=== PATIENT | male | born 1965 | race Caucasian/White ===

== ENCOUNTER 2022-05-03 00:28 | Inpatient (IN) | payer OTHER, SELFPAY ==
[2022-05-03] VITALS (38 sets, daily range): BP systolic 101–182; BP diastolic 56–110; PULSE 80–120; RESP 16–36; TEMP 36.4–37.3; O2SAT 86–98; BMI 31.5; BMI 27.3; BMI 30.3; BMI 30.4
--- NOTE | 2022-05-03 00:40 | ECG_ITS ---
APPROVED REPORT Exam: Resting ECG HR:100 bpm ECG Measurements Heart Rate 100 AXES IN 182 P 94 QRSd 115 QRS 103 QT 405 T 17 QTc 462 Conclusion SINUS TACHYCARDIA WITH OCCASIONAL VENTRICULAR PREMATURE COMPLEXES POSSIBLE LEFT ATRIAL ENLARGEMENT [-0.1mV P-WAVE IN V1/V2] RIGHT AXIS DEVIATION [QRS AXIS > 100] POSSIBLE ANTERIOR MYOCARDIAL INFARCTION , OF INDETERMINATE AGE [30 ms Q WAVE IN V3/V4, OR R < 0.2 mV IN V4] ABNORMAL ECG UNCONFIRMED REPORT Electronically signed by : Valeroi Young MD 05/03/2022 21:27:30
[2022-05-03 01:01] LABS: Coronavirus 19, PCR Not Detected (NotDetected); Influenza A, PCR Not Detected (NotDetected); Influenza B, PCR Not Detected (NotDetected)
[2022-05-03 01:03] LABS: Basophils # 0.1 K/mm3 (0-0.2); Basophils % 1.6 % (0.1-2.0); Eosinophils % 0.4 % (0.1-12.0); Hematocrit 49.6 % (42.0-52.0); Hemoglobin 17.4 g/dL (14.1-18.0); Lymphocytes # 0.9 K/mm3 (0.7-4.5); Lymphocytes % 9.9 % (10-50); Mean Corpuscular HGB Conc 35.1 g/dL (31.8-35.4); Mean Corpuscular Hemoglobin 30.7 pg (27.0-31.2); Mean Corpuscular Volume 87.6 fl (80-94); Mean Platelet Volume 8.3 fl (7.4-10.4); Monocytes # 0.3 K/mm3 (0.1-1.0); Monocytes % 2.9 % (1.7-9.3); Neutrophils # 7.5 K/mm3 (1.8-7.8); Neutrophils % 85.2 % (37.0-80.0); Platelet Count 277 K/mm3 (142-424); Red Blood Count 5.67 M/mm3 (4.60-6.20); Red Cell Distribution Width 14.7 % (11.5-17.5); White Blood Count 8.8 K/mm3 (4.8-10.8)
--- NOTE | 2022-05-03 01:05 | CT_ITS ---
FINAL REPORT TECHNIQUE: Axial CT images were performed through the head. Coronal reformatted images were submitted. This study was performed with techniques to keep radiation doses as low as reasonably achievable (ALARA). Individualized dose reduction techniques using automated exposure control or adjustment of mA and/or kV according to the patient's size were employed. CLINICAL HISTORY: fall FINDINGS: The head is asymmetrically positioned in the gantry. The ventricles are normal in size. There is no evidence of hemorrhage. There is no mass or edema identified. There is no abnormal extra-axial fluid seen. There is mild mucoperiosteal thickening in the right maxillary sinus. The mastoid air cells are hypoplastic. IMPRESSION: No acute intracranial process. Reviewed, Interpreted and Dictated by Dexter Alonzo MD Transcribed by Yessi Ramires Authenticated and [facility]
--- NOTE | 2022-05-03 01:08 | XR_ITS ---
FINAL REPORT CLINICAL HISTORY: soa FINDINGS: SINGLE-VIEW CHEST The heart size is normal. The mediastinum is normal. The lungs are underinflated with bibasilar atelectasis. There is no pneumothorax. IMPRESSION: Bibasilar atelectasis. Reviewed, Interpreted and Dictated by Dexter Alonzo MD Transcribed by Yessi Ramires Authenticated and [facility]
[2022-05-03 01:12] LABS: Alanine Aminotransferase 94 U/L (12-78); Albumin Level 4.7 g/dl (3.5-5.0); Albumin/Globulin Ratio 1.5 (1.1-1.8); Alkaline Phosphatase 135 U/L (38-126); Anion Gap 29.3 mEq/L (5-15); Aspartate Amino Transferase 197 U/L (17-59); Bilirubin,Total 0.7 mg/dl (0.2-1.3); Blood Urea Nitrogen 2 mg/dl (9-20); Calcium 7.4 mg/dl (8.4-10.2); Carbon Dioxide 25 mmol/L (22.0-30.0); Creatinine Clearance Estimated 69 mL/min (50-200); Estimated Glomerular Filt Rate 52 ml/min (>60); GFR (African American) 63 ML/MIN (>60); Globulin 3.2 g/dL (1.3-3.2); Glucose 189 mg/dl (74-100); Sodium 116 mmol/L (136-145); Total Protein,Serum 7.9 g/dl (6.3-8.2)
--- NOTE | 2022-05-03 01:12 | PC.NURSE ---
pt out of room for XRay @ this time
[2022-05-03 01:17] LABS: C-Reactive Protein 3.4 mg/L (0-4)
[2022-05-03 01:23] LABS: MANUAL DIFFERENTIAL MANUAL DIFFERENTIAL (MANUAL DIFF)
--- NOTE | 2022-05-03 01:23 | PC.NURSE ---
patient back in room @ this time.
[2022-05-03 01:24] LABS: NT Pro Brain Natriuretic Pep. 58.4 pg/mL (0-125)
[2022-05-03 01:28] LABS: Procalcitonin 0.147 ng/mL (0.0-2.0)
[2022-05-03 01:33] LABS: ABG Base Excess -3.4 mmol/L (-2.4-2.3); ABG HCO3 22.4 mmhg (22.0-26.0); ABG Oxygen Saturation 91 % (90-100); ABG PH 7.34 mmol/L (7.35-7.45); ABG PO2 66.7 mmhg (80-100); ABG TCO2 23.7 mmhg (23-27)
[2022-05-03 01:34] LABS: Allen's Test Acceptable; Oxygen 2LPM %; Source Right Radial
[2022-05-03 01:40] LABS: Troponin I 0.01 ng/ml (0.00-0.034)
[2022-05-03 01:41] LABS: Lactic Acid 10.5 mmol/L (0.7-2.1)
[2022-05-03 01:42] LABS: Chloride 64 mmol/L (98-107); Potassium 2.3 mmoL/L (3.5-5.1)
--- NOTE | 2022-05-03 01:42 | PC.NURSE ---
Nahomy from lab called in critical labs. Potassium 2.3, Chloride 64 and Lactic of 10.5. notified.
[2022-05-03 01:46] LABS: Creatine Kinase 2508 U/L (55-170)
--- NOTE | 2022-05-03 01:46 | PC.NURSE ---
Patients friend states that she spoke with the patients ex and she told her that he had a history of liver failure.
[2022-05-03 02:15] LABS: Acetone, Serum (Rapid) None Detected (None Detect)
[2022-05-03 02:24] LABS: Erythrocyte Sedimentation Rate 6 mm/hr (0-20)
[2022-05-03 02:28] LABS: Ethyl Alcohol 118 mg/dl (0-10)
--- NOTE | 2022-05-03 02:30 | HMH.EDSOB ---
Discharge Plan Disposition Patient Disposition: Admitted As Inpatient Chief Complaint: Shortness of Breath/Dyspnea Clinical Impressions Clinical Impression: Hypomagnesemia, High anion gap metabolic acidosis, Rhabdomyolysis, Hypokalemia, Hyponatremia, Fall Discharge ED Provider: Gary (ED)Reilly/DOMINICK ORNELAS General Chief Complaint: Shortness of Breath/Dyspnea Stated Complaint: SOB with weakness Time Seen by Provider: 05/03/22 02:00 Mode of Arrival: Wheelchair Source of Information: Patient and Medical Record Limitations: No Limitations Description of Symptoms (Recalled from ER Triage Doc. by RN): Pt arrives to er via private vehicle with c/o generalized weakness. Pt believes that it started on Sunday night. Pt states that he has also had some congestion and shortness of air since sunday with increased confusion. Pt friend states she was worried about how weak he seemed so she brought him in for evaluation. Pt also states that he fell Sunday and hit his face, which he believes was from weakness. History of Present Illness pt with reported weakness and had fall and has been using etoh and has confusion Onset (ago): day(s) Severity: severe Consistency/Duration: constant Associated symptoms: denies other symptoms Related Data Home oxygen amount: none Home Medications Medication Instructions Recorded Confirmed amlodipine 10 mg tablet 10 mg PO DAILY htn 05/03/22 05/03/22 furosemide 40 mg tablet 40 mg PO DAILY Edema 05/03/22 05/03/22 Allergies Allergy/AdvReac Type Severity Reaction Status Date / Time No Known Allergies Allergy Verified 05/03/22 00:51 [facility] Disclaimer: The information contained in this section may have been updated after the patient was seen, as this information can be updated by other users. Medical History (Updated 05/03/22 @ 08:32 by Reilly Vega (ED)MD) Alcoholism Ascites due to alcoholic cirrhosis Liver cirrhosis Surgical History (Updated 05/03/22 @ 05:38 by Noam Hernandez DNP) H/O hernia repair History of hernia repair Social History (Updated 05/03/22 @ 06:50 by Noam Hernandez DNP) Smoking Status: Never smoker alcohol intake: current current occupational status: other Travel in the last 8 weeks: Inside the [place] ROS Obtained: Yes All systems reviewed & no additional complaints except as documented Physical Exam General General appearance: anxious Head Head exam: normocephalic Eye Eye exam: Present PERRL, EOMI and other (has rt eye infraecchymosis); Absent nystagmus ENT ENT exam: Present mucous membranes dry Neck Neck exam: Present full ROM and trachea midline; Absent tenderness Respiratory Respiratory exam: Present other (dec bs bilat ); Absent respiratory distress Cardiovascular Cardiovascular exam: Present tachycardia; Absent systolic murmur Abdominal Exam Abdominal exam: Present soft; Absent tenderness Extremities Exam Extremities exam: Present full ROM Back Exam Back exam: Present normal inspection Neurological Exam Neurological exam: Present alert, oriented X3, CN II-XII intact and other (gcs=14); Absent motor sensory deficit Psychiatric Psychiatric exam: Present anxious Skin Skin exam: Absent rash Medical Decision Making Medical Records Medical records reviewed: Yes I reviewed the patient's medical records. Adan Inquiry Pt receiving controlled substance: No Vital Signs: 05/03/22 00:58 05/03/22 00:57 05/03/22 01:01 Temperature 97.9 F Temperature Source Oral Pulse Rate 103 H 99 H Pulse Rate [Apical] 99 H Respiratory Rate 26 H 30 H 28 H Blood Pressure 115/71 105/56 L Blood Pressure [Right Arm] 130/70 Blood Pressure Mean Blood Pressure Mean [Right Arm] 90 Blood Pressure Source [Right Arm] Automatic Cuff Blood Pressure Position [Right Arm] Sitting 02 Sat by Pulse Oximetry 87 L 88 L 90 L Oxygen Delivery Method Room Air 05/03/22 01:30 05/03/22 02:31 05/03/22 03:01 Temperature Temperatu
[2022-05-03 02:53] LABS: Ammonia 23 umol/L (9-30)
--- NOTE | 2022-05-03 02:54 | CT_ITS ---
FINAL REPORT TECHNIQUE: Postcontrast axial images through the abdomen and pelvis were performed. This study was performed with techniques to keep radiation doses as low as reasonably achievable, (ALARA). Individualized dose reduction techniques using automated exposure control or adjustment of mA and/or kV according to the patient's size were employed. CLINICAL HISTORY: hx of acites FINDINGS: Abdomen: There is patchy bibasilar consolidation. There is mild fatty infiltration of the liver. The gallbladder is folded upon itself. The spleen is unremarkable. The adrenals are normal. The pancreas is unremarkable. The kidneys enhance appropriately. The aorta is normal in caliber. No free fluid or adenopathy is identified. No findings for mechanical bowel obstruction are identified. Pelvis: The appendix is unremarkable. There is a Gaxiola balloon in the decompressed urinary bladder. No free fluid, free air, abscess or adenopathy is identified. IMPRESSION: Patchy bibasilar consolidation. Fatty liver. Reviewed, Interpreted and Dictated by Dexter Alonzo MD Transcribed by Yessi Ramires Authenticated and [facility]
[2022-05-03 02:55] LABS: Microscopic, Urine URINE MICROSCOPIC (MICROSCOPIC)
--- NOTE | 2022-05-03 03:04 | PC.NURSE ---
pt gone to CT @ this time.
[2022-05-03 03:24] LABS: Lymphocytes % 12 % (10-50); Neutrophils % 88 % (42-76); Platelet Estimate Normal; RBC Morphology Normal; Total Cells Counted 100
[2022-05-03 03:27] LABS: Appearance,Urine CLEAR (Clear); Bilirubin,Urine Negative (Negative); Blood, Urine 2+ (Negative); Color,Urine YELLOW (Yellow); Glucose,Urine (UA) Negative (Negative); Ketones,Urine Negative (Negative); Leukocyte Esterase,Urine Negative (Negative); Nitrate,Urine Negative (Negative); PH,Urine 5.5 (5.0-8.5); Protein,Urine 2+ (Negative); Specific Gravity, Urine >= 1.030 (1.005-1.030); Urobilinogen,Urine 0.2 EU/dl (0.2)
[2022-05-03 03:30] LABS: Bacteria,Urine 1+ /lpf; Mucus,Urine 1+ /lpf; Squamous Epithelial Cell,Urine Occasional #/hpf (0-5)
--- NOTE | 2022-05-03 03:30 | PC.NURSE ---
pt back to room at this time.
--- NOTE | 2022-05-03 03:38 | PC.NURSE ---
calling [facility] regarding potential pt transfer
--- NOTE | 2022-05-03 03:43 | PC.NURSE ---
on phone with @ this time.
--- NOTE | 2022-05-03 04:02 | PC.NURSE ---
is on divert. Patient will not be transferred there at this time.
--- NOTE | 2022-05-03 04:02 | PC.NURSE ---
Spoke with [facility] . They are currently not taking any transfers.
--- NOTE | 2022-05-03 04:04 | PC.NURSE ---
Patient is currently on waitlist at .
--- NOTE | 2022-05-03 04:08 | PC.NURSE ---
KELSEY US speaking with Noam at this time
[2022-05-03 04:10] LABS: Anion Gap 30.1 mEq/L (5-15); Blood Urea Nitrogen 2 mg/dl (9-20); Calcium 6.7 mg/dl (8.4-10.2); Carbon Dioxide 19 mmol/L (22.0-30.0); Creatinine Clearance Estimated 74 mL/min (50-200); Estimated Glomerular Filt Rate 57 ml/min (>60); GFR (African American) 69 ML/MIN (>60); Glucose 171 mg/dl (74-100); Potassium 3.1 mmoL/L (3.5-5.1)
[2022-05-03 04:15] LABS: Magnesium 0.8 mg/dl (1.6-2.3)
[2022-05-03 04:16] LABS: Chloride 69 mmol/L (98-107); Sodium 115 mmol/L (136-145)
--- NOTE | 2022-05-03 04:16 | PC.NURSE ---
Nahomy from lab called critical sodium of 115, chloride 69 and magnesium of 0.8. notified. New orders given for 2gm of magnesium IV one time.
[2022-05-03 04:23] LABS: Troponin I 0.03 ng/ml (0.00-0.034)
[2022-05-03 04:28] LABS: T4 (Thyroxine) 5.8 ug/dl (5.53-11.0)
[2022-05-03 04:41] LABS: Thyroid Stimulating Hormone 1.21 uIU/mL (0.465-4.68)
[2022-05-03 04:59] LABS: Reflex Lactic Add Lactic Reflex
--- NOTE | 2022-05-03 05:18 | EXP.HP ---
History of Present Illness *Admission Date: 05/03/22 *Reason for visit:: Confusion, Weakness, Fall *History of present illness: Mr. Johnson is a 56-year-old male with a past medical history of HTN, Liver Cirrhosis and Chronic Alcohol Use. He presents to [facility] due to a fall that occurred 2 days prior to arrival, weakness and confusion. He has a contusion over his left eye and a laceration on his left forehead. He was brought in by private car by his ex-girlfriend who reports that she cares for his home. According to the ex-girlfriend the patient drinks daily, he drinks 20-40 fireball whiskey drinks daily and also drinks light beer in addition to the whiskey drink daily. She reports he has a history of DT's. In the ER the patient has multiple electrolyte abnormalities: K is 3.1, Magnesium is 0.8, Na is 115, Calcium is 6.7. He also has a CK of 2,508. CT of the head, abdomen and pelvis and Cxray are currently pending read as radiology read system is currently unavailable at the facility. ER Physician spoke with multiple facilities for transfer. He is currently on the waiting list at [facility] for admission. On exam he is confused and re-directed by his ex-girlfriend at bedside, he is nauseated and vomiting. He has received Ativan in the ER for concern for acute alcohol withdrawal. He is receiving electrolyte replacement and repeat labs will be monitored. There is a concern for SIADH with Beer Potomania. The patient will need sodium levels checked q 2 hours with serum sodium increase <10 mEq/L in first 24 hours. There is a high chance in this patient for clinical deterioration. The plan of care was discussed with the patient and ex-girfriend on admission. [facility] Disclaimer: The information contained in this section may have been updated after the patient was seen, as this information can be updated by other users. Medical History (Updated 05/03/22 @ 12:15 by Zaid Galeas MD) Alcoholism Ascites due to alcoholic cirrhosis Liver cirrhosis Surgical History H/O hernia repair History of hernia repair Social History (Updated 05/03/22 @ 06:50 by Noam Hernandez DNP) Smoking Status: Never smoker alcohol intake: current current occupational status: other Travel in the last 8 weeks: Inside the [place] Review of Systems Review of Systems Review of systems:: pertinent systems reviewed and negative unless documented below Constitutional Constitutional: Reports frequent falls Eyes Eyes: Reports system reviewed and no additional complaints, except as documented ENT Ears, Nose, Mouth, and Throat: Reports system reviewed and no additional complaints, except as documented *Cardiovascular Cardiovascular: Reports system reviewed and no additional complaints, except as documented and Reports dyspnea *Respiratory Respiratory: Reports cough and Reports dyspnea *Gastrointestinal Gastrointestinal: Reports nausea and Reports vomiting *Genitourinary Genitourinary: Reports system reviewed and no additional complaints, except as documented *Musculoskeletal Musculoskeletal: Reports system reviewed and no additional complaints, except as documented Integumentary/Breasts Comments: Contusion, laceration over left eye *Neurologic Neurologic: Reports frequent falls, Reports memory loss and Reports tremor(s) Psychiatric Psychiatric: Reports memory loss Endocrine Endocrine: Reports system reviewed and no additional complaints, except as documented Hematologic/Lymphatic Hematologic/Lymphatic: Reports system reviewed and no additional complaints, except as documented Allergic/Immunologic Allergic/Immunologic: Reports system reviewed and no additional complaints, except as documented Meds Home Medications and Allergies Home Medications Medication Instructions Recorded Confirmed Type amlodipine 10 mg tablet 10 mg PO DAILY High blood pressure 05/03/22 0
--- NOTE | 2022-05-03 05:27 | PC.NURSE ---
Patient ciwa score is an 8
[2022-05-03 05:28] LABS: Amphetamine/Metha Screen,Urine Negative ng/ml (<1000); Cannabinoid Screen,Urine Negative ng/ml (<50); Cocaine Screen,Urine Negative ng/ml (<300); Phencyclidine Screen,Urine Negative ng/ml (<25)
[2022-05-03 05:29] LABS: Lipase 98 U/L (23-300)
[2022-05-03 05:29] LABS: Barbiturates Screen,Urine Negative ng/ml (<200); Benzodiazepines Screen,Urine Negative ng/ml (<200); Methadone Screen,Urine Negative ng/ml (<300)
[2022-05-03 05:30] LABS: Opiate Screen,Urine Positive ng/ml (<300)
--- NOTE | 2022-05-03 05:33 | PC.NURSE ---
Per MD, patient, though admitted, will remain in the ER pending the results from the CT head that was ordered but unable to be read by [facility] due to technical difficulties.
[2022-05-03 05:39] LABS: Creatine Kinase 2294 U/L (55-170)
--- NOTE | 2022-05-03 05:46 | PC.NURSE ---
MD s/w pt & friend regarding admission, holding in ER, and POC.
[2022-05-03 05:55] LABS: Potassium 3.1 mmoL/L (3.5-5.1); Sodium 118 mmol/L (136-145)
[2022-05-03 05:58] LABS: Anion Gap 26.1 mEq/L (5-15); Carbon Dioxide 24 mmol/L (22.0-30.0); Creatinine Clearance Estimated 81 mL/min (50-200); Estimated Glomerular Filt Rate 62 ml/min (>60); GFR (African American) 76 ML/MIN (>60); Magnesium 1.6 mg/dl (1.6-2.3)
[2022-05-03 05:59] LABS: Calcium 6.7 mg/dl (8.4-10.2); Glucose 181 mg/dl (74-100)
[2022-05-03 06:28] LABS: Creatine Kinase 2325 U/L (55-170)
[2022-05-03 06:29] LABS: Lactic Acid Follow Up (RFLX 1) 12.1 mmol/L (0.7-2.1)
[2022-05-03 06:30] LABS: Blood Urea Nitrogen < 2 mg/dl (9-20); Chloride 71 mmol/L (98-107)
--- NOTE | 2022-05-03 06:33 | PC.NURSE ---
Spoke with FREDO Santacruz regarding patients abnormal critical labs, inc Lactic 12.1, chloride 71, cpk 2325. Orders being entered.
--- NOTE | 2022-05-03 07:19 | PC.NURSE ---
spoke with estela in radiology r/t [facility] downtime status, states [facility] is now back up but their turn around time is approx 385 minutes. Estela states she will send pt scans to [facility] but she is not sure if they will start reading before [address] Vega of this.
[2022-05-03 07:39] LABS: Reflex Lactic (2 hrs) Add Lactic Reflex
--- NOTE | 2022-05-03 07:42 | PC.NURSE ---
received preliminary results of CTs from [facility], notified Dr. Galeas of results, states okay to send pt upstairs to assigned room. Reports pt will need to be a step down pt. spoke with assisted living housekeeper and care management notified Dr. Galeas stated okay to send pt to assigned room. per assisted living housekeeper pt assigned room is currently being cleaned.
--- NOTE | 2022-05-03 07:58 | PC.NURSE ---
spoke with hospitalist about npo order
--- NOTE | 2022-05-03 07:59 | PC.NURSE ---
called for breakfast tray
--- NOTE | 2022-05-03 08:32 | PC.NURSE ---
report called to bijal marquez on second floor at this time, states she will be down to transport pt.
--- NOTE | 2022-05-03 08:37 | HMH.PHAINT1 ---
Pharmacy Intervention Comments: HOME MEDICATION LIST VERIFIED USING LIST FROM HOME PHARMACY
[2022-05-03 08:46] LABS: Potassium 3.2 mmoL/L (3.5-5.1); Sodium 119 mmol/L (136-145)
[2022-05-03 08:49] LABS: Blood Urea Nitrogen 3 mg/dl (9-20); Creatinine Clearance Estimated 81 mL/min (50-200); Estimated Glomerular Filt Rate 62 ml/min (>60); GFR (African American) 76 ML/MIN (>60)
[2022-05-03 08:50] LABS: Anion Gap 20.2 mEq/L (5-15); Calcium 7.5 mg/dl (8.4-10.2); Carbon Dioxide 31 mmol/L (22.0-30.0); Glucose 146 mg/dl (74-100)
[2022-05-03 08:51] LABS: Activated Partial Thrombo Time 26.9 seconds (22.8-30.6); INR 1.08 (0.9-1.1); Prothrombin Time 11.6 seconds (10.1-12.5)
--- NOTE | 2022-05-03 08:53 | PC.NURSE ---
pt transported to assigned room per bijal calderon
--- NOTE | 2022-05-03 08:56 | PC.NURSE ---
PT ARRIVED TO FLOOR VIA STRETCHER
[2022-05-03 09:02] LABS: Creatine Kinase 2338 U/L (55-170); Troponin I 0.02 ng/ml (0.00-0.034)
[2022-05-03 09:24] LABS: Chloride 71 mmol/L (98-107); Lactic Acid Follow up (RFLX 2) 7.6 mmol/L (0.7-2.1)
[2022-05-03 09:47] LABS: Phosphorous 3.6 mg/dl (2.5-4.5)
[2022-05-03 11:28] LABS: Anion Gap 15.3 mEq/L (5-15); Blood Urea Nitrogen 5 mg/dl (9-20); Calcium 7.2 mg/dl (8.4-10.2); Carbon Dioxide 34 mmol/L (22.0-30.0); Creatinine Clearance Estimated 98 mL/min (50-200); Estimated Glomerular Filt Rate 69 ml/min (>60); GFR (African American) 83 ML/MIN (>60); Glucose 148 mg/dl (74-100); Potassium 3.3 mmoL/L (3.5-5.1); Sodium 118 mmol/L (136-145)
[2022-05-03 11:33] LABS: Chloride 72 mmol/L (98-107)
[2022-05-03 12:48] LABS: Anion Gap 14.5 mEq/L (5-15); Blood Urea Nitrogen 7 mg/dl (9-20); Calcium 7.1 mg/dl (8.4-10.2); Carbon Dioxide 35 mmol/L (22.0-30.0); Creatinine Clearance Estimated 107 mL/min (50-200); Estimated Glomerular Filt Rate 77 ml/min (>60); GFR (African American) 93 ML/MIN (>60); Glucose 140 mg/dl (74-100); Potassium 3.5 mmoL/L (3.5-5.1); Sodium 118 mmol/L (136-145)
[2022-05-03 12:55] LABS: Chloride 72 mmol/L (98-107); Lactic Acid 4.8 mmol/L (0.7-2.1)
--- NOTE | 2022-05-03 13:15 | XR_ITS ---
FINAL REPORT CLINICAL HISTORY: increased o2 demand, soa COMPARISON: 05/03/2022 FINDINGS: SINGLE-VIEW CHEST The heart size is normal. The mediastinum is normal. The lungs are underinflated with bibasilar atelectasis. There is no pneumothorax. IMPRESSION: No significant change. Reviewed, Interpreted and Dictated by Dexter Alonzo MD Transcribed by Yessi Ramires Authenticated and . [facility]
--- NOTE | 2022-05-03 13:17 | CA_ITS ---
APPROVED REPORT EXAM: Comprehensive 2D, Doppler, and color-flow Echocardiogram Maitre D: POPPY Tabor, RVS Ht: 5 ft 8 in Wt: 26lbs BSA: 0.86 BP: 126/83 mmHg Indications: Alcohol withdrawl, Cirrhosis, delerium, R/o CHF 2D Dimensions IVSd 1.02 cm M: 0.6-1.2 LVEF (Visual) 53.00 % PWd 1.08 cm M: 0.6 - 1.2 LVDd 4.74 cm M: 4.2 - 5.9 LVDs 3.45 cm M: 2.5 - 4.0 Aortic Root 3.39 cm M: 3.1 - 3.7 Left Atrium 2.31 cm M: 3.0 - 4.0 LVOT 2.19 cm (M/F) 1.5-2.5 Left Ventricle Left atrium is normal size left ventricular is normal size, estimated ejection fraction of 55% with no regional wall motion abnormality, septum is sigmoid configuration. Right Ventricle Right atrium and right ventricular normal size and contractility. Aortic Valve Aortic valve is minimally thickened and fibrosed there is no aortic stenosis by morphology. Mitral Valve Mitral valve grossly normal. Tricuspid Valve Tricuspid valve grossly normal. Pulmonic Valve Pulmonic valve is poorly visualized. Great Vessels Aortic root appears to be normal size. Inferior vena cava is poorly visualized. Pericardium No significant pericardial effusion noted. Conclusion 1. 2D and M-mode echocardiogram was performed no color-flow mapping or Doppler done. 2. Normal left ventricular size preserved left ventricular systolic function, estimated ejection fraction 55% with no regional wall motion abnormality. 3. No significant pericardial effusion noted. 4. Inferior vena cava is poorly visualized. Electronically signed by : Srinath Almanza MD 05/04/2022 05:31:24
[2022-05-03 13:19] LABS: Ammonia 35 umol/L (9-30)
--- NOTE | 2022-05-03 13:39 | PC.NURSE ---
md made aware of the chloride and lactate results within 30mins of call from lab
[2022-05-03 13:41] LABS: VBG Base Excess 8.3 mmol/L (-2.4-2.3); VBG HCO3 34.6 mmol/L (23-30); VBG Oxygen Saturation 65.3 % (50-70); VBG PCO2 70.7 mmol/L (35-51); VBG PH 7.31 mmol/L (7.31-7.41); VBG PO2 35.5 mmol/L (28-40); VBG Total CO2 36.8 mmol/L (23-27)
--- NOTE | 2022-05-03 13:50 | CARE MANAGER ---
Contacted Selena Gonzales and alerted that he has [place] medicaid. Did call his insurance plan to discuss benefits. There are no out of network or out of state benefits past an emergent episode. He has resources available to him in [place] for rehab for treatment of his alcoholism but will speak to him tomorrow about trying to find resources here vs. [place].
[2022-05-03 14:15] LABS: Troponin I 0.02 ng/ml (0.00-0.034)
--- NOTE | 2022-05-03 14:31 | DIET.NUTRFU ---
unable to visit today, multiple other medical staff visiting and then he was resting with breathing mask on. Patient continues NPO with NaCl hypotonic ordered, last labs Na 118L, K 3.3L, glucose 148H, Ca 7.2L, Phosp 3.6, Mg 1.6, showing some improvement. He received vitamin pack earlier today. 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
[2022-05-03 14:40] LABS: Creatine Kinase 3071 U/L (55-170)
[2022-05-03 15:45] LABS: ABG Base Excess 8.6 mmol/L (-2.4-2.3); ABG HCO3 33.5 mmhg (22.0-26.0); ABG Oxygen Saturation 94 % (90-100); ABG PH 7.39 mmol/L (7.35-7.45); ABG PO2 68.3 mmhg (80-100); ABG TCO2 35.3 mmhg (23-27)
[2022-05-03 15:47] LABS: Hemoglobin A1C 5.7 % (4.0-6.0)
[2022-05-03 15:49] LABS: Oxygen 40 %; Tidal Volume 15/5
[2022-05-03 15:50] LABS: ABG PCO2 56.3 mmhg (35.0-45.0); Allen's Test ACCEPTABLE; Source R RADIAL
[2022-05-03 16:48] LABS: Potassium 3.6 mmoL/L (3.5-5.1); Sodium 119 mmol/L (136-145)
[2022-05-03 16:51] LABS: Anion Gap 8.6 mEq/L (5-15); Blood Urea Nitrogen 6 mg/dl (9-20); Calcium 6.8 mg/dl (8.4-10.2); Carbon Dioxide 39 mmol/L (22.0-30.0); Creatinine Clearance Estimated 119 mL/min (50-200); Estimated Glomerular Filt Rate 87 ml/min (>60); GFR (African American) 105 ML/MIN (>60); Glucose 122 mg/dl (74-100)
[2022-05-03 16:54] LABS: Chloride 75 mmol/L (98-107)
--- NOTE | 2022-05-03 17:49 | EXP.EVENT.NO ---
ICU/Critical care attestation Since arriving to the floor, Mr. Johnson has necessitated close monitoring of his electrolyte disturbances with frequent re-evaluations and adjustments to meds based on close monitoring with labs. Initiated on hypertonic saline for sodium below 120. Receiving 25 cc an hour with close monitoring every 4 hours of sodium, potassium, chloride, magnesium, calcium. Treated with additional dose of IV calcium due to hypocalcemia. Respiratory status worsened necessitating initiation of BiPAP. Currently 15/5 at 40% FiO2. Responding well with initial respiratory acidosis improving on repeat blood gas with PCO2 of 56. pH normalized 7.39. Continuing IV fluid resuscitation for rhabdomyolysis. Patient requiring frequent dosing of benzodiazepine. Nursing performing CIWA scoring at this time. Patient at high risk of decompensation. This patient is critically ill with 40 minutes devoted solely to this patient managing life/organ supporting interventions that required physician assessment. This includes time spent making adjustments in BiPAP settings, IV fluid administration, replacement of severe electrolyte disturbances, monitoring of sodium repletion with hypertonic saline, treatment for severe alcohol withdrawal with IV benzodiazepines, adjustments of medications, discussion of patient with consultants and other care providers as well as updating patient and/or family (if patient by virtue of his/her condition is unable to participate in decision making). This does not include time spent performing separately billed procedures. Time is not concurrent with that of other providers.
[2022-05-03 21:10] LABS: ABG Base Excess 14.9 mmol/L (-2.4-2.3); ABG HCO3 38.5 mmhg (22.0-26.0); ABG Oxygen Saturation 96 % (90-100); ABG PH 7.47 mmol/L (7.35-7.45); ABG PO2 73.4 mmhg (80-100); ABG TCO2 40.2 mmhg (23-27)
[2022-05-03 21:12] LABS: Allen's Test Acceptable; Oxygen 40 %; Source Right Radial
[2022-05-03 22:29] LABS: Basophils % 0.3 % (0.1-2.0); Eosinophils # 0.1 K/mm3 (0.0-0.4); Eosinophils % 1.2 % (0.1-12.0); Hematocrit 43.8 % (42.0-52.0); Hemoglobin 15.7 g/dL (14.1-18.0); Lymphocytes # 0.7 K/mm3 (0.7-4.5); Lymphocytes % 8.6 % (10-50); Mean Corpuscular HGB Conc 35.9 g/dL (31.8-35.4); Mean Corpuscular Hemoglobin 32.6 pg (27.0-31.2); Mean Corpuscular Volume 90.8 fl (80-94); Mean Platelet Volume 8.6 fl (7.4-10.4); Monocytes # 0.4 K/mm3 (0.1-1.0); Monocytes % 4.4 % (1.7-9.3); Neutrophils # 6.8 K/mm3 (1.8-7.8); Neutrophils % 85.5 % (37.0-80.0); Platelet Count 169 K/mm3 (142-424); Red Blood Count 4.82 M/mm3 (4.60-6.20); Red Cell Distribution Width 15.3 % (11.5-17.5)
[2022-05-03 22:42] LABS: MANUAL DIFFERENTIAL MANUAL DIFFERENTIAL (MANUAL DIFF)
[2022-05-03 22:57] LABS: Chloride 79 mmol/L (98-107); Sodium 124 mmol/L (136-145)
[2022-05-03 22:58] LABS: Potassium 3.5 mmoL/L (3.5-5.1)
[2022-05-03 22:59] LABS: Creatine Kinase 1242 U/L (55-170)
[2022-05-03 23:00] LABS: Alanine Aminotransferase 97 U/L (12-78); Alkaline Phosphatase 132 U/L (38-126); Aspartate Amino Transferase 237 U/L (17-59); Bilirubin,Total 0.9 mg/dl (0.2-1.3); Blood Urea Nitrogen 7 mg/dl (9-20); Creatinine Clearance Estimated 153 mL/min (50-200); Estimated Glomerular Filt Rate 116 ml/min (>60); GFR (African American) 141 ML/MIN (>60)
[2022-05-03 23:01] LABS: Albumin Level 3.4 g/dl (3.5-5.0); Albumin/Globulin Ratio 1.1 (1.1-1.8); Calcium 7.8 mg/dl (8.4-10.2); Glucose 102 mg/dl (74-100); Magnesium 2.3 mg/dl (1.6-2.3); Phosphorous 2.9 mg/dl (2.5-4.5); Total Protein,Serum 6.4 g/dl (6.3-8.2)
[2022-05-04] VITALS (35 sets, daily range): BP systolic 90–172; BP diastolic 55–113; PULSE 90–122; RESP 16–26; TEMP 36.4–37.8; O2SAT 90–100; BMI 29.7
[2022-05-04 00:44] LABS: Blood Urea Nitrogen 7 mg/dl (9-20); Calcium 7.7 mg/dl (8.4-10.2); Chloride 79 mmol/L (98-107); Creatinine Clearance Estimated 134 mL/min (50-200); Estimated Glomerular Filt Rate 100 ml/min (>60); GFR (African American) 121 ML/MIN (>60); Glucose 102 mg/dl (74-100); Potassium 3.5 mmoL/L (3.5-5.1); Sodium 125 mmol/L (136-145)
[2022-05-04 00:45] LABS: Anion Gap 9.5 mEq/L (5-15); Carbon Dioxide 39 mmol/L (22.0-30.0)
[2022-05-04 00:55] LABS: Anion Gap 8.5 mEq/L (5-15); Carbon Dioxide 41 mmol/L (22.0-30.0)
[2022-05-04 02:39] LABS: Lymphocytes % 9 % (10-50); Monocytes % 4 % (2-9); Neutrophils % 87 % (42-76); Platelet Estimate Normal; RBC Morphology Normal; Total Cells Counted 100
[2022-05-04 04:47] LABS: Alanine Aminotransferase 99 U/L (12-78); Albumin Level 3.4 g/dl (3.5-5.0); Albumin/Globulin Ratio 1.2 (1.1-1.8); Alkaline Phosphatase 129 U/L (38-126); Aspartate Amino Transferase 261 U/L (17-59); Bilirubin,Total 1.2 mg/dl (0.2-1.3); Blood Urea Nitrogen 9 mg/dl (9-20); Calcium 8.2 mg/dl (8.4-10.2); Chloride 85 mmol/L (98-107); Creatinine Clearance Estimated 134 mL/min (50-200); Estimated Glomerular Filt Rate 100 ml/min (>60); GFR (African American) 121 ML/MIN (>60); Globulin 2.9 g/dL (1.3-3.2); Glucose 98 mg/dl (74-100); Potassium 4.7 mmoL/L (3.5-5.1); Sodium 129 mmol/L (136-145); Total Protein,Serum 6.3 g/dl (6.3-8.2)
[2022-05-04 04:53] LABS: Anion Gap 9.7 mEq/L (5-15); Carbon Dioxide 39 mmol/L (22.0-30.0)
[2022-05-04 07:09] LABS: Basophils % 0.3 % (0.1-2.0); Hemoglobin 15.2 g/dL (14.1-18.0); Lymphocytes # 0.8 K/mm3 (0.7-4.5); Lymphocytes % 13.1 % (10-50); Mean Corpuscular HGB Conc 35.3 g/dL (31.8-35.4); Mean Corpuscular Hemoglobin 32.3 pg (27.0-31.2); Mean Corpuscular Volume 91.6 fl (80-94); Mean Platelet Volume 8.7 fl (7.4-10.4); Monocytes # 0.4 K/mm3 (0.1-1.0); Neutrophils # 4.8 K/mm3 (1.8-7.8); Neutrophils % 80.6 % (37.0-80.0); Platelet Count 150 K/mm3 (142-424); Red Cell Distribution Width 15.7 % (11.5-17.5); White Blood Count 5.9 K/mm3 (4.8-10.8)
[2022-05-04 07:15] LABS: Chloride 87 mmol/L (98-107); Sodium 132 mmol/L (136-145)
[2022-05-04 07:17] LABS: Blood Urea Nitrogen 8 mg/dl (9-20); Creatinine Clearance Estimated 131 mL/min (50-200); Estimated Glomerular Filt Rate 100 ml/min (>60); GFR (African American) 121 ML/MIN (>60)
[2022-05-04 07:18] LABS: Alanine Aminotransferase 98 U/L (12-78); Albumin Level 3.2 g/dl (3.5-5.0); Albumin/Globulin Ratio 1.1 (1.1-1.8); Alkaline Phosphatase 128 U/L (38-126); Aspartate Amino Transferase 259 U/L (17-59); Bilirubin,Total 1.1 mg/dl (0.2-1.3); Calcium 8.1 mg/dl (8.4-10.2); Globulin 2.9 g/dL (1.3-3.2); Glucose 102 mg/dl (74-100); Magnesium 2.4 mg/dl (1.6-2.3); Total Protein,Serum 6.1 g/dl (6.3-8.2)
[2022-05-04 08:35] LABS: Carbon Dioxide 42 mmol/L (22.0-30.0)
[2022-05-04 09:45] LABS: POC Glucose,Bedside 104 (70-110)
--- NOTE | 2022-05-04 10:14 | PC.NURSE ---
0900 I/O from multiple shifts.
--- NOTE | 2022-05-04 12:12 | DIET.NUTRFU ---
Addendum entered by Celia Brady RD, LD 05/04/22 15:43: Patients diet was advanced to soft bland diet today, he seems to be improving. Was able to interview him today, he was off BiPAP. Reviewed his previous meal plan, 2 meals/day a breakfast sandwich in morning and then a full dinner. He had been working up until January he had a hernia operation. His drinking has increased since off work, consuming multiple calories via EtOH beverages. When asked about chewing or swallowing issues, he reports he was still coughing earlier today and some green phloem came up. Denies GI distress and reports weight stable. Took his dinner order and encouraged him to only eat what he can tolerate, he agreed. Tuna sandwich some mashed potatoes and orange sherbert is what he ordered. Will continue to monitor diet tolerance and order condition Original Note: Continue NPO status, on BiPAP 40%, no alert enough and respiratory status unstable for oral diet. Na level has improved from 114 to 132, IVF continued. Lasix in place. Reviewed with IDT today, provider indicated poor prognosis. Will continue to follow and advance diet slowly when appropriate
--- NOTE | 2022-05-04 16:39 | EXP.PN ---
Subjective *Date: 05/04/22 *Time: 16:39 Interval history: Date of service May 04, 2022 The patient reports that he is feeling better. He is inquiring about something to eat. Nursing staff report a Tmax 100.1 with stable blood pressures and heart rates. He has transition from BiPAP to nasal cannula oxygen. His sodium has gently corrected to above 130. His morning labs have been reviewed and discussed including a CBC with a normal white blood cell count of 5.9 and hemoglobin of 15. His platelet count is normal at 150. His electrolytes identify sodium 132 with potassium 4.0. He is retaining bicarb at 42. His BUN is 8 and his creatinine 0.8. INR is normal. A repeat chest x-ray identifies bibasilar atelectasis. Nursing staff (Marianela MICHAELS) is documenting improved CIWA scores. Exam Data for Last 24 hours Vital signs and Labs for Last 24 Hours: Temp Pulse Resp BP Pulse Ox FiO2 98.6 F 119 H 22 172/100 H 90 L 40 05/04/22 15:24 05/04/22 16:00 05/04/22 14:00 05/04/22 14:00 05/04/22 16:00 05/04/22 10:00 Laboratory Results - last 24 hr 05/03/22 16:19: Sodium 119 L, Potassium 3.6, Chloride 75 L, Carbon Dioxide 39 H, Anion Gap 8.6, BUN 6 L, Creatinine 0.90, Estimated Creat Clear 119, Estimated GFR 87, Est GFR ( Amer) 105, Glucose 122 H, Calcium 6.8 L 05/03/22 19:58: Specimen Source Right radial, O2 % 40, ABG pH 7.47 H, ABG pCO2 54.0 H, ABG pO2 73.4 L, ABG HCO3 38.5 H, ABG Total CO2 40.2 H, ABG O2 Saturation 96, ABG Base Excess 14.9 H, Harmeet Test Acceptable 05/03/22 20:03: POC Glucose 104 05/03/22 22:20: WBC 8.0, RBC 4.82, Hgb 15.7, Hct 43.8, MCV 90.8, MCH 32.6 H, MCHC 35.9 H, RDW 15.3, Plt Count 169 D, MPV 8.6, Neut % (Auto) 85.5 H, Lymph % (Auto) 8.6 L, Campbell % (Auto) 4.4, Eos % (Auto) 1.2, Baso % (Auto) 0.3, Neut # (Auto) 6.8, Lymph # (Auto) 0.7, Campbell # (Auto) 0.4, Eos # (Auto) 0.1, Baso # (Auto) 0.0, Total Counted 100, Neutrophils % (Manual) 87 H, Lymphocytes % (Manual) 9 L, Monocytes % (Manual) 4, Platelet Estimate Normal, RBC Morphology Normal 05/03/22 22:20: Sodium 124 L, Potassium 3.5, Chloride 79 L, Carbon Dioxide 39 H, Anion Gap 9.5, BUN 7 L, Creatinine 0.70 D, Estimated Creat Clear 153, Estimated GFR 116, Est GFR ( Amer) 141 D, Glucose 102 H, Calcium 7.8 L, Magnesium 2.3 D, Total Bilirubin 0.9, AST 237 H, ALT 97 H, Alkaline Phosphatase 132 H, Total Protein 6.4, Albumin 3.4 L D, Globulin 3.0, Albumin/Globulin Ratio 1.1 05/03/22 22:20: Total Creatine Kinase 1242 H* D 05/03/22 22:20: Phosphorus 2.9 05/04/22 00:05: Sodium 125 L, Potassium 3.5, Chloride 79 L, Carbon Dioxide 41 H*, Anion Gap 8.5, BUN 7 L, Creatinine 0.80, Estimated Creat Clear 134, Estimated GFR 100, Est GFR ( Amer) 121, Glucose 102 H, Calcium 7.7 L 05/04/22 04:00: Sodium 129 L, Potassium 4.7 D, Chloride 85 L, Carbon Dioxide 39 H, Anion Gap 9.7, BUN 9 D, Creatinine 0.80, Estimated Creat Clear 134, Estimated GFR 100, Est GFR ( Amer) 121, Glucose 98, Calcium 8.2 L, Total Bilirubin 1.2, AST 261 H, ALT 99 H, Alkaline Phosphatase 129 H, Total Protein 6.3, Albumin 3.4 L, Globulin 2.9, Albumin/Globulin Ratio 1.2 05/04/22 06:12: WBC 5.9 D, RBC 4.70, Hgb 15.2, Hct 43.0, MCV 91.6, MCH 32.3 H, MCHC 35.3, RDW 15.7, Plt Count 150, MPV 8.7, Neut % (Auto) 80.6 H, Lymph % (Auto) 13.1, Campbell % (Auto) 6.0, Eos % (Auto) 0.0 L, Baso % (Auto) 0.3, Neut # (Auto) 4.8, Lymph # (Auto) 0.8, Campbell # (Auto) 0.4, Eos # (Auto) 0.0, Baso # (Auto) 0.0 05/04/22 06:12: Sodium 132 L, Potassium 4.0, Chloride 87 L, Carbon Dioxide 42 H*, Anion Gap 7.0, BUN 8 L, Creatinine 0.80, Estimated Creat Clear 131, Estimated GFR 100, Est GFR ( Amer) 121, Glucose 102 H, Calcium 8.1 L, Magnesium 2.4 H, Total Bilirubin 1.1, AST 259 H, ALT 98 H, Alkaline Phosphatase 128 H, Total Protein 6.1 L, Albumin 3.2 L, Globulin 2.9, Albumin/Globulin Ratio 1.1 I & O for Last 24 hours: Intake & Output 05/01/22 05/02/22 05/03/22 05/04/22 23:59 23:59 23:59 23:59 Intake Total 2772 / 2922 2415 / 2415 Ou
[2022-05-04 17:22] LABS: Calcium, Ionized 4.1 mg/dL (4.5-5.6)
--- NOTE | 2022-05-04 17:38 | PC.NURSE ---
courtesy tech round: pt transfered from bed to bsc and back to bed again x2 assist. pt was comfortable and given a TV guide per request.
[2022-05-05] VITALS (17 sets, daily range): BP systolic 88–171; BP diastolic 62–109; PULSE 84–123; RESP 15–27; TEMP 36.6–37.2; O2SAT 89–99; BMI 28.6
--- NOTE | 2022-05-05 03:49 | PC.NURSE ---
Pt has been restless at times this shift. CIWA scores have improved. Currently 3. VSS. Pt is afebrile. Has tolerated Bipap from 220 until 0330. Currently on 4L O2 NC. F/C draining to bedside with dark, sangita urine. Output has been good. Safety measures in place. Significant other at bedside.
[2022-05-05 06:15] LABS: ABG Base Excess 16.3 mmol/L (-2.4-2.3); ABG HCO3 40.1 mmhg (22.0-26.0); ABG Oxygen Saturation 91 % (90-100); ABG PH 7.47 mmol/L (7.35-7.45); ABG PO2 55.5 mmhg (80-100); ABG TCO2 41.8 mmhg (23-27)
[2022-05-05 06:19] LABS: Allen's Test acceptable; Oxygen 30% %; Tidal Volume 15/5
[2022-05-05 07:33] LABS: Basophils % 0.6 % (0.1-2.0); Eosinophils % 0.5 % (0.1-12.0); Hematocrit 43.1 % (42.0-52.0); Hemoglobin 14.4 g/dL (14.1-18.0); Lymphocytes # 1.4 K/mm3 (0.7-4.5); Lymphocytes % 26.4 % (10-50); Mean Corpuscular HGB Conc 33.3 g/dL (31.8-35.4); Mean Corpuscular Hemoglobin 31.3 pg (27.0-31.2); Mean Platelet Volume 8.8 fl (7.4-10.4); Monocytes # 0.4 K/mm3 (0.1-1.0); Monocytes % 6.9 % (1.7-9.3); Neutrophils # 3.4 K/mm3 (1.8-7.8); Neutrophils % 65.5 % (37.0-80.0); Platelet Count 135 K/mm3 (142-424); Red Blood Count 4.59 M/mm3 (4.60-6.20); Red Cell Distribution Width 15.6 % (11.5-17.5); White Blood Count 5.1 K/mm3 (4.8-10.8)
[2022-05-05 07:42] LABS: Chloride 89 mmol/L (98-107); Potassium 3.3 mmoL/L (3.5-5.1); Sodium 134 mmol/L (136-145)
[2022-05-05 07:44] LABS: Blood Urea Nitrogen 8 mg/dl (9-20)
[2022-05-05 07:45] LABS: Alanine Aminotransferase 99 U/L (12-78); Albumin Level 3.3 g/dl (3.5-5.0); Albumin/Globulin Ratio 1.1 (1.1-1.8); Alkaline Phosphatase 117 U/L (38-126); Aspartate Amino Transferase 201 U/L (17-59); Bilirubin,Total 0.8 mg/dl (0.2-1.3); Calcium 8.1 mg/dl (8.4-10.2); Creatine Kinase 346 U/L (55-170); Creatinine Clearance Estimated 145 mL/min (50-200); Estimated Glomerular Filt Rate 116 ml/min (>60); GFR (African American) 141 ML/MIN (>60); Glucose 91 mg/dl (74-100); Total Protein,Serum 6.3 g/dl (6.3-8.2)
[2022-05-05 07:46] LABS: Magnesium 1.9 mg/dl (1.6-2.3)
[2022-05-05 08:57] LABS: Anion Gap 5.3 mEq/L (5-15); Carbon Dioxide 43 mmol/L (22.0-30.0)
[2022-05-05 09:29] LABS: Sodium, Urine 27 mmol/L (Not Estab.)
--- NOTE | 2022-05-05 15:02 | CARE MANAGER ---
I went in and spoke with patient regarding need for alcohol rehab once discharged. Patient is from [place] and has Medicaid, so unfortunately, I can't offer [place] rehab information. I talked to him about finding a facility (number is on back of insurance card) once back in [place]. Also, explained to him that if he is going to live here, he needs to work on transferring his medicaid to [place]. We talked about [facility] if changes to [place] Medicaid.
--- NOTE | 2022-05-05 18:56 | EXP.PN ---
Subjective *Date: 05/05/22 *Time: 18:56 Interval history: Date of service May 05, 2022 The patient reports that he is feeling better and is inquiring about going home. Nursing staff report that he remains afebrile with some elevated heart rates today and stable blood pressures. He is still utilizing his CPAP and is currently requiring 4 L of oxygen via nasal cannula. He is requesting to have his Gaxiola removed. Nursing staff reports CIWA scores under 5. We have reviewed and discussed this morning laboratory results. I have personally interpreted his labs as follows: CBC with a normal white blood cell count 5.1, hemoglobin 14 and platelet count 135. Sodium 134, potassium 3.3, chloride 89, bicarb 43, BUN 8, creatinine 0.7, glucose 91. His CK is downward trending at 346. His total bilirubin has normalized. He is tolerating his IV antibiotic with no adverse events. Exam Data for Last 24 hours Vital signs and Labs for Last 24 Hours: Temp Pulse Resp BP Pulse Ox FiO2 98.1 F 109 H 19 136/90 94 L 30 05/05/22 16:00 05/05/22 16:00 05/05/22 16:00 05/05/22 16:00 05/05/22 16:00 05/05/22 06:08 Laboratory Results - last 24 hr 05/03/22 00:55: Serum Osmolality 274 L 05/03/22 17:52: Urine Sodium 27 05/05/22 06:00: Specimen Source l radial, O2 % 30%, ABG pH 7.47 H, ABG pCO2 57.0 H, ABG pO2 55.5 L, ABG HCO3 40.1 H, ABG Total CO2 41.8 H, ABG O2 Saturation 91, ABG Base Excess 16.3 H, Harmeet Test acceptable, Tidal Volume 15/5 05/05/22 06:20: WBC 5.1, RBC 4.59 L, Hgb 14.4, Hct 43.1, MCV 94.0, MCH 31.3 H, MCHC 33.3, RDW 15.6, Plt Count 135 L, MPV 8.8, Neut % (Auto) 65.5, Lymph % (Auto) 26.4, Bowman % (Auto) 6.9, Eos % (Auto) 0.5, Baso % (Auto) 0.6, Neut # (Auto) 3.4, Lymph # (Auto) 1.4, Bowman # (Auto) 0.4, Eos # (Auto) 0.0, Baso # (Auto) 0.0 05/05/22 06:20: Sodium 134 L, Potassium 3.3 L, Chloride 89 L, Carbon Dioxide 43 H*, Anion Gap 5.3, BUN 8 L, Creatinine 0.70, Estimated Creat Clear 145, Estimated GFR 116, Est GFR ( Amer) 141, Glucose 91, Calcium 8.1 L, Magnesium 1.9 D, Total Bilirubin 0.8, AST 201 H, ALT 99 H, Alkaline Phosphatase 117, Total Creatine Kinase 346 H D, Total Protein 6.3, Albumin 3.3 L, Globulin 3.0, Albumin/Globulin Ratio 1.1 I & O for Last 24 hours: Intake & Output 05/02/22 05/03/22 05/04/22 05/05/22 23:59 23:59 23:59 23:59 Intake Total 2772 / 2922 3865 / 4090 3303 / 3303 Output Total 5600 / 6350 8650 / 8650 2400 / 2400 Balance -2828 / -3428 -4785 / -4560 903 / 903 Weight 93.157 kg 91.172 kg 87.77 kg Microbiology Reports for the Last 24 Hours: Microbiology 05/03/22 00:55 Blood Blood Culture - Preliminary NO GROWTH AFTER 48 HOURS 05/03/22 00:55 Blood Blood Culture - Preliminary NO GROWTH AFTER 48 HOURS Constitutional Constitutional: no acute distress, disheveled and cooperative *Routine HEENT Exam Head: Present normocephalic Eye: Present EOMI and PERRL ENT: Present mucous membranes moist *Routine Neck Exam Neck: Present supple; Absent lymphadenopathy *Routine Respiratory Exam Respiratory: Present rhonchi, normal respiratory effort and symmetric chest movement *Routine Cardiovascular Exam Cardiovascular: Present RRR *Routine Abdominal Exam Abdominal: Present soft and normoactive bowel sounds; Absent tenderness *Routine Extremities Exam Extremities: Absent cyanosis, clubbing or edema *Routine Skin Exam Skin: Present warm; Absent rash *Routine Neurological Exam Neurological: Present alert, oriented X3, moving all extremities, vision grossly intact, hearing grossly intact and normal speech; Absent tremors Routine Psychiatric Exam Psychiatric: Present normal affect, normal thought process, cooperative and good insight Assessment and Plan *Assessment and plan (1) Septic shock: Status: Acute Category: Medical Code(s): A41.9 - Sepsis, unspecified organism; R65.21 - Severe sepsis with septic shock (2) Hyponatremi
--- NOTE | 2022-05-05 19:34 | PC.NURSE ---
pt has been up to chair t/o shift, on 4L NC, telemetry d/c this shift, no complaints of pain or SOA
[2022-05-06] VITALS (7 sets, daily range): BP systolic 136–156; BP diastolic 71–98; PULSE 103–122; RESP 18–22; TEMP 36.3–36.9; O2SAT 91–96; BMI 28.5
--- NOTE | 2022-05-06 04:54 | PC.NURSE ---
patient alert and oriented. rested on and off through the night. 4L nc. IV abx.
[2022-05-06 07:09] LABS: Anion Gap 8.8 mEq/L (5-15); Blood Urea Nitrogen 6 mg/dl (9-20); Calcium 8.5 mg/dl (8.4-10.2); Carbon Dioxide 39 mmol/L (22.0-30.0); Chloride 94 mmol/L (98-107); Creatinine Clearance Estimated 126 mL/min (50-200); Estimated Glomerular Filt Rate 100 ml/min (>60); GFR (African American) 121 ML/MIN (>60); Glucose 124 mg/dl (74-100); Potassium 3.8 mmoL/L (3.5-5.1); Sodium 138 mmol/L (136-145)
--- NOTE | 2022-05-06 09:20 | PC.NURSE ---
tech note; notified nurse of high blood pressure and heart rate for 0800 vital signs.
--- NOTE | 2022-05-06 13:40 | PC.NURSE ---
tech note; notified nurse of high blood pressure and heart rate for 1200 vital signs.
--- NOTE | 2022-05-06 13:41 | EXP.PN ---
Subjective *Date: 05/06/22 *Time: 13:41 Interval history: Date of service May 06, 2022 The patient is accompanied by his female friend. He reports that he is doing better. Nursing staff report that he remains afebrile with some tachycardic heart rates but stable blood pressures. He is saturating appropriately on room air. His ABG from yesterday identified CO2 of 57 and he is encouraged to use his BiPAP therapy. Exam Data for Last 24 hours Vital signs and Labs for Last 24 Hours: Temp Pulse Resp BP Pulse Ox FiO2 98.0 F 119 H 18 144/92 H 91 L 30 05/06/22 12:00 05/06/22 12:00 05/06/22 12:00 05/06/22 12:00 05/06/22 12:00 05/05/22 06:08 Laboratory Results - last 24 hr 05/06/22 06:40: Sodium 138, Potassium 3.8, Chloride 94 L, Carbon Dioxide 39 H, Anion Gap 8.8, BUN 6 L, Creatinine 0.80, Estimated Creat Clear 126, Estimated GFR 100, Est GFR ( Amer) 121, Glucose 124 H, Calcium 8.5 I & O for Last 24 hours: Intake & Output 05/03/22 05/04/22 05/05/22 05/06/22 23:59 23:59 23:59 23:59 Intake Total 2772 / 2922 3865 / 4090 3303 / 3703 880 / 880 Output Total 5600 / 6350 8650 / 8650 2625 / 2625 600 / 600 Balance -2828 / -3428 -4785 / -4560 678 / 1078 280 / 280 Weight 93.157 kg 91.172 kg 87.77 kg 87.231 kg Constitutional Constitutional: no acute distress, disheveled and cooperative *Routine HEENT Exam Head: Present normocephalic Eye: Present EOMI and PERRL ENT: Present mucous membranes moist *Routine Neck Exam Neck: Present supple; Absent lymphadenopathy *Routine Respiratory Exam Respiratory: Present rhonchi, normal respiratory effort and symmetric chest movement *Routine Cardiovascular Exam Cardiovascular: Present RRR *Routine Abdominal Exam Abdominal: Present soft and normoactive bowel sounds; Absent tenderness *Routine Extremities Exam Extremities: Absent cyanosis, clubbing or edema *Routine Skin Exam Skin: Present warm; Absent rash *Routine Neurological Exam Neurological: Present alert, oriented X3, moving all extremities, vision grossly intact, hearing grossly intact and normal speech; Absent tremors Routine Psychiatric Exam Psychiatric: Present normal affect, normal thought process, cooperative and good insight Assessment and Plan *Assessment and plan (1) Septic shock: Status: Acute Category: Medical Code(s): A41.9 - Sepsis, unspecified organism; R65.21 - Severe sepsis with septic shock (2) Hyponatremia: Status: Acute Category: Medical Code(s): E87.1 - Hypo-osmolality and hyponatremia (3) Alcohol withdrawal: Status: Acute Category: Medical Code(s): F10.939 - Alcohol use, unspecified with withdrawal, unspecified (4) Rhabdomyolysis: Status: Acute Category: Medical Code(s): M62.82 - Rhabdomyolysis (5) Fall: Status: Acute Category: Medical Code(s): W19.XXXA - Unspecified fall, initial encounter (6) BURTON (acute kidney injury): Status: Acute Category: Medical Code(s): N17.9 - Acute kidney failure, unspecified Plan 56-year-old male with chronic alcohol use disorder that presents following a fall that occurred 2-days prior to arrival with confusion, weakness, nausea, vomiting and shortness of air, found to have signs of acute alcohol withdrawal, multiple electrolyte abnormalities and problems addressed are as follows: Sepsis, POA Tachycardia, tachypnea, findings on chest imaging Telemetry monitoring Blood cultures no growth to date Trending labs and inflammatory markers with improved results IV Unasyn transitioned to Augmentin p.o. for concerns of aspiration pneumonia IV fluid resuscitation in the ED with normal lactic acid Aspiration pneumonia Chronic hypercapnic respiratory failure Pulse oximetry monitoring Oxygen therapy to maintain appropriate oxygen saturations IV Unasyn transition to Augmentin p.o. Trending labs and inflammatory markers Chest imaging independently rev
--- NOTE | 2022-05-06 18:37 | PC.NURSE ---
pt has been up in chair for part of day and sitting on the side of the bed, has ambulated to BR and in room, has remained tachy, did tolerate wearing bipap for about 3 hours this afternoon, pt educated on need to wear bipap tonight as well
[2022-05-07] VITALS: PULSE 69; RESP 20; TEMP 36.8
[2022-05-07 04:00] VITALS: BP 167/61; PULSE 100; RESP 18; TEMP 36.7; O2SAT 96; BMI 28.6
[2022-05-07 07:42] VITALS: BP 164/95; PULSE 109; RESP 18; TEMP 36.6; O2SAT 93
[2022-05-07 07:48] LABS: Alanine Aminotransferase 104 U/L (12-78); Albumin/Globulin Ratio 1.2 (1.1-1.8); Alkaline Phosphatase 120 U/L (38-126); Anion Gap 7.1 mEq/L (5-15); Aspartate Amino Transferase 125 U/L (17-59); Bilirubin,Total 0.8 mg/dl (0.2-1.3); Blood Urea Nitrogen 9 mg/dl (9-20); Calcium 8.8 mg/dl (8.4-10.2); Carbon Dioxide 37 mmol/L (22.0-30.0); Chloride 95 mmol/L (98-107); Creatinine Clearance Estimated 112 mL/min (50-200); Estimated Glomerular Filt Rate 87 ml/min (>60); GFR (African American) 105 ML/MIN (>60); Globulin 3.4 g/dL (1.3-3.2); Glucose 98 mg/dl (74-100); Magnesium 1.7 mg/dl (1.6-2.3); Potassium 3.1 mmoL/L (3.5-5.1); Sodium 136 mmol/L (136-145); Total Protein,Serum 7.4 g/dl (6.3-8.2)
[2022-05-07 07:49] LABS: Creatine Kinase 159 U/L (55-170)
[2022-05-07 07:56] LABS: Basophils # 0.1 K/mm3 (0-0.2); Basophils % 0.8 % (0.1-2.0); Eosinophils # 0.2 K/mm3 (0.0-0.4); Eosinophils % 2.7 % (0.1-12.0); Hematocrit 47.3 % (42.0-52.0); Hemoglobin 15.6 g/dL (14.1-18.0); Lymphocytes # 1.9 K/mm3 (0.7-4.5); Lymphocytes % 27.2 % (10-50); Mean Corpuscular Hemoglobin 30.8 pg (27.0-31.2); Mean Corpuscular Volume 93.2 fl (80-94); Mean Platelet Volume 8.7 fl (7.4-10.4); Monocytes # 0.6 K/mm3 (0.1-1.0); Monocytes % 8.9 % (1.7-9.3); Neutrophils # 4.3 K/mm3 (1.8-7.8); Neutrophils % 60.5 % (37.0-80.0); Platelet Count 166 K/mm3 (142-424); Red Blood Count 5.08 M/mm3 (4.60-6.20); White Blood Count 7.1 K/mm3 (4.8-10.8)
[2022-05-07 08:00] VITALS: PULSE 109; O2SAT 94
--- NOTE | 2022-05-07 10:36 | EXP.DC.SUM ---
General Admission date:: 05/03/22 HPI HPI HPI: Mr. Johnson is a 56-year-old male with a past medical history of HTN, Liver Cirrhosis and Chronic Alcohol Use. He presents to [facility] due to a fall that occurred 2 days prior to arrival, weakness and confusion. He has a contusion over his left eye and a laceration on his left forehead. He was brought in by private car by his ex-girlfriend who reports that she cares for his home. According to the ex-girlfriend the patient drinks daily, he drinks 20-40 fireball whiskey drinks daily and also drinks light beer in addition to the whiskey drink daily. She reports he has a history of DT's. In the ER the patient has multiple electrolyte abnormalities: K is 3.1, Magnesium is 0.8, Na is 115, Calcium is 6.7. He also has a CK of 2,508. CT of the head, abdomen and pelvis and Cxray are currently pending read as radiology read system is currently unavailable at the facility. ER Physician spoke with multiple facilities for transfer. He is currently on the waiting list at [facility] for admission. On exam he is confused and re-directed by his ex-girlfriend at bedside, he is nauseated and vomiting. He has received Ativan in the ER for concern for acute alcohol withdrawal. He is receiving electrolyte replacement and repeat labs will be monitored. There is a concern for SIADH with Beer Potomania. The patient will need sodium levels checked q 2 hours with serum sodium increase <10 mEq/L in first 24 hours. There is a high chance in this patient for clinical deterioration. The plan of care was discussed with the patient and ex-girfriend on admission. Hospital Course Hospital Course Hospital Course: The patient is admitted to the medical unit with telemetry and pulse oximetry monitoring. His ABGs identify CO2 retention and he is started on oxygen supplementation and NIPPV therapy. Blood cultures are acquired and he is started on broad-spectrum IV antibiotic with fluid resuscitation. His blood cultures remain no growth to date. His laboratory studies and inflammatory markers were trended. His magnesium was replaced. His potassium was replaced. His acute kidney injury resolved. His rhabdomyolysis resolved and a normalized CK was identified. His admitting lipase was normal as well as procalcitonin. Chest x-rays and CT abdomen pelvis identified concerns with aspiration. His head CT identified no acute changes. Nursing staff reported improved CIWA evaluations throughout his stay. He tolerated his IV benzodiazepine therapy well with no adverse events. His oxygen requirements diminished and he oxygenated appropriately on room air for over 48 hours. His IV antibiotic was transitioned to p.o. for discharge planning. He was maintained on vitamin supplementation, folic acid and thiamine replacement. He was maintained on orally scheduled benzodiazepine therapy. His significant other Melanie remained with him throughout his stay. The patient identified improvement and requested to be discharged home. He lives in [place] and plans to follow-up with his PCP there. He understands the importance of seeking counseling and help for his alcohol dependence. We have recommended routine AA attendance. He will be discharged with a short course of antibiotic therapy, benzodiazepine therapy and vitamin supplementation including thiamine. We are recommending that he discuss further evaluation for continued outpatient NIPPV therapy. I spent 35 minutes in [id number] time with the patient, nursing staff and Melanie at bedside concerning the discharge process. We discussed the admitting diagnoses and hospital course. We discussed identified improvement and the patient's desire to be discharged. We reviewed inpatient studies and imaging. The patient voiced understanding on the importance of follow-up with his primary care provider and applied behavior science specialist(s). The patient plans to be compliant with the medication regim
--- NOTE | 2022-05-08 13:39 | CARE MANAGER ---
Called and spoke with patient in regards to recent discharge. Patient states that he was able to get all of his medications prescribed at discharge. He had no complaints or concerns at time of call.
[2022-05-09 09:14] LABS: Osmolality, Urine 210 mOsmol/kg (.)
== END 2022-05-07 11:25 | disposition home or self-care (01) | DRG 871 ==
LOC: ER 01:35 → 2ND 05:07
PROVIDERS: Family Medicine; Nurse Practitioner Family; Admitting Provider Internal Medicine Adolescent Medicine; Emergency Provider Emergency Medicine; Visit Provider Internal Medicine Adolescent Medicine
DX: A41.9 Sepsis, unspecified organism (principal); J69.0 Pneumonitis due to inhalation of food and vomit; R65.21 Severe sepsis with septic shock; M62.82 Rhabdomyolysis; N17.9 Acute kidney failure, unspecified; F10.939 Alcohol use, unspecified with withdrawal, unspecified; E87.1 Hypo-osmolality and hyponatremia; F10.239 Alcohol dependence with withdrawal, unspecified; E87.20 Acidosis, unspecified; E87.6 Hypokalemia; E83.42 Hypomagnesemia; E83.51 Hypocalcemia; R29.6 Repeated falls; K70.31 Alcoholic cirrhosis of liver with ascites; W19.XXXA Unspecified fall, initial encounter
CPT/HCPCS: 36415; 51702; 70450; 71045; 74177; 80048; 80053; 80305; 81001; 82009; 82140; 82330; 82550; 82803; 82962; 83036; 83605; 83690; 83735; 83880; 83930; 83935; 84100; 84145; 84300; 84436; 84443; 84484; 85007; 85025; 85610; 85651; 85730; 86140; 87040; 93005; 93308; 94640; 94660; 99285; C9803; J1956; J2405; J3475; Q9967; U0003; U0005